=== PATIENT | female | born 1995 ===

== ENCOUNTER 2017-02-10 02:42 | Emergency (ER) | payer OTHER, MEDICAID ==
[2017-02-10 02:48] VITALS: BMI 23.8
[2017-02-10 02:51] VITALS: BP 117/64; PULSE 86; RESP 18; TEMP 98; O2SAT 100
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
== END 2017-02-10 04:41 | disposition home or self-care (01) ==
LOC: H.ER 02:42
DX: S89.91XA Unspecified injury of right lower leg, initial encounter (principal); V03.10XA Pedestrian on foot injured in collision with car, pick-up truck or van in traffic accident, initial encounter; Y92.410 Unspecified street and highway as the place of occurrence of the external cause